=== PATIENT | male | born 1965 | race Caucasian/White ===

== ENCOUNTER → 2025-01-05 11:24 | Outpatient (REF) | payer OTHER, SELFPAY | LOC: PAVMRI 11:24 | PROVIDERS: ATTENDING PHYSICIAN Student in an Organized Health Care Education/Training Program; FAMILY PHYSICIAN Family Medicine | DX: M25.511 Pain in right shoulder (principal); M25.512 Pain in left shoulder | CPT/HCPCS: 73221 ==

== ENCOUNTER → 2025-05-08 15:33 | Outpatient (REF) | payer OTHER, SELFPAY | LOC: HWRAD 15:33 | PROVIDERS: ATTENDING PHYSICIAN Student in an Organized Health Care Education/Training Program; FAMILY PHYSICIAN Family Medicine | DX: R05.1 Acute cough (principal) | CPT/HCPCS: 71046 ==